=== PATIENT | male | born 1960 | race Caucasian/White ===

== ENCOUNTER → 2018-05-21 | Outpatient (CLI) | payer OTHER ==
[~2018-05-21] VITALS: Ht 162.6 cm; Wt 86.7 kg
[2018-05-21 13:10] VITALS: BP 160/80
== END | disposition home or self-care (01) ==
LOC: HBOWC 09:54
PROVIDERS: ATTEND Surgery Plastic and Reconstructive Surgery
DX: T87.89 Other complications of amputation stump (principal); S81.801D Unspecified open wound, right lower leg, subsequent encounter; E11.9 Type 2 diabetes mellitus without complications; Y83.5 Amputation of limb(s) as the cause of abnormal reaction of the patient, or of later complication, without mention of misadventure at the time of the procedure; X58.XXXD Exposure to other specified factors, subsequent encounter
CPT/HCPCS: 11043; G0463

== ENCOUNTER → 2018-06-04 | Outpatient (CLI) | payer OTHER ==
[2018-06-04 09:00] VITALS: BP 146/84
== END | disposition home or self-care (01) ==
LOC: HBOWC 08:29
PROVIDERS: ATTEND Surgery Plastic and Reconstructive Surgery
DX: T87.89 Other complications of amputation stump (principal); S81.801D Unspecified open wound, right lower leg, subsequent encounter; E11.9 Type 2 diabetes mellitus without complications; X58.XXXD Exposure to other specified factors, subsequent encounter; Y83.5 Amputation of limb(s) as the cause of abnormal reaction of the patient, or of later complication, without mention of misadventure at the time of the procedure
CPT/HCPCS: 11043

== ENCOUNTER → 2018-06-11 | Outpatient (CLI) | payer OTHER ==
[2018-06-11 09:00] VITALS: BP 153/87
== END | disposition home or self-care (01) ==
LOC: HBOWC 08:21
PROVIDERS: ATTEND Surgery Plastic and Reconstructive Surgery
DX: T87.89 Other complications of amputation stump (principal); E11.52 Type 2 diabetes mellitus with diabetic peripheral angiopathy with gangrene; I96 Gangrene, not elsewhere classified; Y83.5 Amputation of limb(s) as the cause of abnormal reaction of the patient, or of later complication, without mention of misadventure at the time of the procedure
CPT/HCPCS: 11043

== ENCOUNTER → 2018-06-18 | Outpatient (CLI) | payer OTHER ==
[2018-06-18 09:00] VITALS: BP 131/79
== END | disposition home or self-care (01) ==
LOC: HBOWC 08:27
PROVIDERS: ATTEND Surgery Plastic and Reconstructive Surgery
DX: T87.89 Other complications of amputation stump (principal); E11.52 Type 2 diabetes mellitus with diabetic peripheral angiopathy with gangrene; I96 Gangrene, not elsewhere classified; Y83.5 Amputation of limb(s) as the cause of abnormal reaction of the patient, or of later complication, without mention of misadventure at the time of the procedure

== ENCOUNTER → 2018-06-25 | Outpatient (CLI) | payer OTHER ==
[2018-06-25 09:46] VITALS: BP 149/90
== END | disposition home or self-care (01) ==
LOC: MSR 09:34
PROVIDERS: ATTEND Surgery Plastic and Reconstructive Surgery
DX: T81.31XA Disruption of external operation (surgical) wound, not elsewhere classified, initial encounter (principal); I70.201 Unspecified atherosclerosis of native arteries of extremities, right leg; M79.89 Other specified soft tissue disorders; T87.89 Other complications of amputation stump

== ENCOUNTER → 2018-07-02 | Outpatient (CLI) | payer OTHER ==
[2018-07-02 08:59] VITALS: BP 161/93
== END | disposition home or self-care (01) ==
LOC: HBOWC 08:39
PROVIDERS: ATTEND Surgery Plastic and Reconstructive Surgery
DX: T87.89 Other complications of amputation stump (principal); S81.801D Unspecified open wound, right lower leg, subsequent encounter; E11.52 Type 2 diabetes mellitus with diabetic peripheral angiopathy with gangrene; I96 Gangrene, not elsewhere classified; Y83.5 Amputation of limb(s) as the cause of abnormal reaction of the patient, or of later complication, without mention of misadventure at the time of the procedure; X58.XXXD Exposure to other specified factors, subsequent encounter
CPT/HCPCS: 11043

== ENCOUNTER → 2018-07-10 | Outpatient (CLI) | payer OTHER ==
[~2018-07-10] MED LIST: GADOBUTROL 1 MMOL/ML 10 ML VIAL IVP ONE
== END | disposition home or self-care (01) ==
LOC: RADMN 08:29
PROVIDERS: ATTEND Surgery Plastic and Reconstructive Surgery
DX: E11.622 Type 2 diabetes mellitus with other skin ulcer (principal); L97.819 Non-pressure chronic ulcer of other part of right lower leg with unspecified severity; M79.89 Other specified soft tissue disorders; R60.0 Localized edema; L02.415 Cutaneous abscess of right lower limb
CPT/HCPCS: 73720; A9585

== ENCOUNTER → 2018-07-16 | Outpatient (CLI) | payer OTHER ==
[2018-07-16 08:44] VITALS: BP 134/88
== END | disposition home or self-care (01) ==
LOC: HBOWC 08:24
PROVIDERS: ATTEND Surgery Plastic and Reconstructive Surgery
DX: T87.89 Other complications of amputation stump (principal); E11.52 Type 2 diabetes mellitus with diabetic peripheral angiopathy with gangrene; I96 Gangrene, not elsewhere classified; Y83.5 Amputation of limb(s) as the cause of abnormal reaction of the patient, or of later complication, without mention of misadventure at the time of the procedure
CPT/HCPCS: 11043

== ENCOUNTER → 2018-07-23 | Outpatient (CLI) | payer OTHER ==
[~2018-07-23] MED LIST changes: -GADOBUTROL 1 MMOL/ML 10 ML VIAL IVP ONE; +LIDOCAINE 2% 5 ML JELLY TP ONE
[2018-07-23 09:02] VITALS: BP 143/87
== END | disposition home or self-care (01) ==
LOC: HBOWC 08:33
PROVIDERS: ATTEND Surgery Plastic and Reconstructive Surgery
DX: T87.89 Other complications of amputation stump (principal); E11.52 Type 2 diabetes mellitus with diabetic peripheral angiopathy with gangrene; I96 Gangrene, not elsewhere classified; Y83.5 Amputation of limb(s) as the cause of abnormal reaction of the patient, or of later complication, without mention of misadventure at the time of the procedure
CPT/HCPCS: 11042

== ENCOUNTER → 2018-07-30 | Outpatient (CLI) | payer OTHER ==
[2018-07-30 08:46] VITALS: BP 151/90
== END | disposition home or self-care (01) ==
LOC: HBOWC 08:00
PROVIDERS: ATTEND Surgery Plastic and Reconstructive Surgery
DX: T87.89 Other complications of amputation stump (principal); E11.52 Type 2 diabetes mellitus with diabetic peripheral angiopathy with gangrene; I96 Gangrene, not elsewhere classified; Y83.5 Amputation of limb(s) as the cause of abnormal reaction of the patient, or of later complication, without mention of misadventure at the time of the procedure
CPT/HCPCS: 11043